=== PATIENT | male | born 1970 | race Caucasian/White ===

== ENCOUNTER 2023-12-28 13:46 | Outpatient (AMB) | payer OTHER, SELFPAY ==
[2023-12-28 13:54] VITALS: BP 139/68; PULSE 52; O2SAT 98; BMI 24.4
--- NOTE | 2023-12-28 13:54 | MHC.OFFVIS ---
Vital Signs 12/28/23 13:54 Height 5 ft 9 in Weight 165 lb BMI 24.4 BP 139/68 Blood Pressure Location Rt brachial Position Sitting Pulse 52 Pulse Source Pulse Oximeter Pulse Oximetry (%) 98 Oxygen Delivery Method Room Air Intake Visit Reasons: Failed back lumbar syndrome Allergies Penicillin Allergy (Unknown, Uncoded 12/28/23 13:55) Hives Medication List - Last Reconciled 12/28/23 by Kianna Marin acetaminophen ER 1,300 mg PO Q8H diclofenac sodium 1% 2 grams topical QID duloxetine 60 mg PO DAILY gabapentin 300 mg PO TID lidocaine 4% 1 patch topical DAILY PRN loratadine (Allergy Relief (loratadine)) 10 mg PO DAILY nicotine (polacrilex) 4 mg buccal Q2-4H PRN omeprazole 20 mg PO DAILY prazosin 1 mg PO BEDTIME quetiapine 100 mg PO BEDTIME tizanidine 4 mg PO Q8H PRN HPI Comments Details: Ayana is a very pleasant 53-year-old male who presented to the office today for evaluation management of his chronic lower back pain Is suffering with postlaminectomy syndrome with left lumbar radiculopathy He underwent L4-5 laminectomy surgery in [place] 2021, at that time he was having right lumbar radiculopathy, the symptoms resolved after surgery. Several months ago he developed left lower back pain with radiation down the left leg. Endorses some numbness of the left lower extremity, weakness and tingling Patient was sent for urgent MRI, results as per below. Five days ago he underwent caudal XIOMARA at [facility] which provided him no relief Patient was originally referred here, and a referral he was to be evaluated for the same caudal XIOMARA. Pain today is rated as a 10/10, constant. He is currently taking Tylenol, gabapentin, duloxetine and Suboxone for his pain Denies red flag symptoms including new loss of bowel, bladder or saddle anesthesia In terms of muscle damage condition is described as aching, hot, burning, stabbing, sharp, tingling, shooting, tiring, shocking, cramping, squeezing, numb, throbbing, pins and needle Pain is negatively impacting patient's enjoyment of life, general activity, work, relationships people, sleep, activities of daily living Denies current use of anticoagulant Denies implantable devices, pacemaker defibrillator [facility] Medical History (Updated 12/28/23 @ 16:01 by Kimber Sue APRN, GAME AUTHOR) PTSD (post-traumatic stress disorder) Asthma Depression Anxiety Surgical History (Updated 12/28/23 @ 16:00 by Kimber Sue APRN, GAME AUTHOR) H/O laminectomy Review of Systems Const All systems reviewed & are unremarkable except as noted in HPI and below Physical Exam Vital Signs: Last Vital Signs Pulse 52 12/28/23 13:54 BP 139/68 12/28/23 13:54 Pulse Ox 98 12/28/23 13:54 Oxygen Delivery Method Room Air 12/28/23 13:54 BMI result Body Mass Index 24.4 General: awake, alert, oriented. Answers questions appropriately. Fully engaged in examination. Skin: warm, dry, intact HEENT: Normocephalic. Hearing intact. Cardiac: External chest normal in appearance. Respiratory: No cough, audible wheezing or stridor. Abdomen: without gross distension. MS: No obvious swelling or deformities. Able to stand on bilateral tiptoes and bilateral heels.? Able to transition from sit to stand unassisted. Ambulates with bilaterally normal heel strike and toe off Negative footdrop, negative clonus SLR positive left Decreased lumbar range of motion Nontender over bilateral PSIS Well-healed surgical scar midline lumbar vertebrae Neurological: Oriented to person, place, time and situation. Thought process intact. No gait abnormalities appreciated. Psychiatric: Appropriate mood and affect. Good judgment and insight. Results Reviewed Results Reviewed: 11/30/23 Assessment & Plan Assessment & Plan (1) Lumbar radiculopathy: Code(s): M54.16 - Radiculopathy, lumbar region Category: Medical (2) Post laminectomy syndrome: Code(s): M96.1 - Postlaminectomy syndrome, not elsewhere classified Category: Medical Plan Ayana is a very pleasant 53-year-old male who presented to the office today for evaluation management of his chronic lower back pain Patient is suffering with post-laminectomy syndrome and left lumbar radiculopathy Recent MRI reviewed, results as per above. Given patient's unsatisfactory results of caudal XIOMARA 5 days ago will refer him to Neurosurgery for evaluation Discussed at length with patient options for treatment including SCS trial/implant. If he is cleared by Neurosurgery patient will follow-up in our office to discuss further. All questions and concerns were answered, patient agrees with the plan. Follow up after neurosurgical evaluation, sooner if needed Orders: Referrals Neuro Spine Referral M54.16 - Radiculopathy, lumbar region, M96.1 - Postlaminectomy syndrome, not elsewhere classified Coding Level of Care Code New Pt Level 4 (45546) Complex EM visit Add On G2211 Diagnoses Lumbar radiculopathy M54.16 Post laminectomy syndrome M96.1
== END 2023-12-28 14:38 | disposition home or self-care (01) ==
PROVIDERS: PCP Student in an Organized Health Care Education/Training Program; Visit Provider Registered Nurse Emergency
DX: M54.16 Radiculopathy, lumbar region (principal); M96.1 Postlaminectomy syndrome, not elsewhere classified
CPT/HCPCS: 99204; G2211

== ENCOUNTER → 2023-12-28 13:46 | Outpatient (BNVA) | payer OTHER, SELFPAY | PROVIDERS: PCP Student in an Organized Health Care Education/Training Program; Visit Provider Registered Nurse Emergency | DX: M54.16 Radiculopathy, lumbar region (principal); M96.1 Postlaminectomy syndrome, not elsewhere classified | CPT/HCPCS: 99202 ==

== ENCOUNTER 2024-01-21 14:58 | Outpatient (AMB) | payer OTHER, SELFPAY ==
--- NOTE | 2024-01-21 14:49 | HO.SPINEOV ---
Intake Visit Reasons: lumbar radiculopathy Intake Note: Mr. Mtz is here today c/o low back pain. Breastfeeding Peer Counselor Required: No Allergies Penicillin Allergy (Unknown, Uncoded 12/28/23 13:55) [facility] Assessment & Plan Assessment & Plan (1) Lumbar radiculopathy: Code(s): M54.16 - Radiculopathy, lumbar region Category: Medical Plan Dear OMARI Sue, Thank you for referring Ayana to our office today. He is a pleasant 53-year-old male who comes in today with a chief complaint of low back pain and shooting pains into his left lower extremity. When describing the distribution of his pain he states that it starts in his low back shoots over his posterior thigh down his left leg and terminates somewhere near his ankle. Overall his description is rather vague, and he focuses more on his lack of sensation in the left lower extremity. He states his left foot and toes feel numb, in the numbness ascends skilled nursing up his left tibialis. He reports that this began without any inciting incident roughly 5 months ago. He does have a history of previous lumbar decompression surgery completed in [address] Thompson ([facility]), who performed his lumbar decompression while he was incarcerated in [place]. He does report good relief of his low back pain and right-sided lumbar radiculopathy after this surgery. He reports he has tried caudal XIOMARA injection in the past which provided no relief. In addition to this he has attempted physical therapy in the past but feels as though it just caused him more pain. He reports that bending/lifting exacerbate his pain, sitting and resting alleviate the pain. He is currently taking gabapentin and Suboxone in an effort to mitigate his pain. He has tried hovh-dwp-vctaves medications such as diclofenac gel and Tylenol in the past with minimal relief. PMH: Anxiety, depression, PTSD, tobacco use disorder, vitamin B12 deficiency, venous stasis dermatitis, GERD, asthma. Social hx: Patient smokes 1/2 pack cigarettes per day. Reports daily cannabis use. Medications: Suboxone, Tylenol, diclofenac gel, duloxetine, gabapentin, lidocaine, loratadine, nicotine gum, omeprazole, prazosin, quetiapine, tizanidine. Allergies: Penicillin. Physical exam: The patient has slightly decreased strength with dorsiflexion/plantar flexion on the left. The rest of his strength appears 5/5 intact. He reports a feeling of numbness diffusely below the midline of the tibialis in the left. Achilles reflexes 1+ hypoactive bilaterally. Patella reflexes are 2+ intact. He is able to ambulate well and rises from a seated position without difficulty. (-) bilateral straight leg raise, (-) Leiva's, (-) clonus. Imaging review: MRI of the lumbar spine completed at [facility] on 11/30/2023 shows notable degenerative disc disease at L4-5 and L5-S1, with posterior disc bulging at both of these levels. There appears to be moderate bilateral foraminal stenosis at L4-5, and some degree of central canal stenosis at L5-S1 with what appears to be mild-moderate right-sided foraminal stenosis. Impression: Ayana is a pleasant, animated 53-year-old male who comes in today with a chief complaint of low back pain and shooting pains into his left lower extremity. He has a history of what sounds like lumbar decompression surgery in 2021 completed at [facility] during an incarceration. He is unsure exactly what levels were addressed, based on his MRI imaging it seems L4-5 and L5-S1 may have been addressed concurrently. In addition to this he has been evaluated by [facility] pain management, and the pain management team here at [facility]. He did not report any relief from the previous set of injections that he received. I would like to obtain his records from [facility] to ascertain exactly what surgery was performed. I will call the patient update this note once I have his records and am able to review them. Our pain management team is tentatively considering a spinal cord stimulator as a treatment modality. Thank you for allowing us to care for your patient. The total time spent with this visit with this patient was 45 minutes reviewing history, physical exam, MRI imaging review, and implementation of treatment plan or further diagnostic testing Matt Jansen MD,PhD [facility] Coding Level of Care Code New Pt Level 4 (65973) Diagnoses Lumbar radiculopathy M54.16
== END 2024-01-21 15:42 | disposition home or self-care (01) ==
PROVIDERS: PCP Student in an Organized Health Care Education/Training Program; Referring Provider Registered Nurse Emergency; Visit Provider Physician Assistant
DX: M54.16 Radiculopathy, lumbar region (principal)
CPT/HCPCS: 99204

== ENCOUNTER → 2024-01-21 14:58 | Outpatient (BNVA) | payer OTHER, SELFPAY | PROVIDERS: PCP Student in an Organized Health Care Education/Training Program; Visit Provider Physician Assistant | DX: M54.16 Radiculopathy, lumbar region (principal) | CPT/HCPCS: 99202 ==